=== PATIENT | male | born 1970 | race Caucasian/White ===

== ENCOUNTER 2017-04-01 12:27 | Observation (INO) | payer SELFPAY ==
[2017-04-01] MEDS ORDERED: ASPIRIN 81 MG TABLET, CHEWABLE PO ONE (12:34)
[2017-04-01 12:54] LABS: ABSOLUTE BASOPHILS # (AUTO) 0.1 10^3/uL (0.0-0.2); ABSOLUTE EOSINOPHILS # (AUTO) 0.1 10^3/uL (0.0-0.6); ABSOLUTE MONOCYTES (AUTO) 0.6 10^3/uL (0.1-1.4); ABSOLUTE NEUT (AUTO) 5.2 10^3/uL (1.7-8.2); BASOPHILS % (AUTO) 0.9 % (0-2); EOSINOPHILS % (AUTO) 0.7 % (0-6); HEMATOCRIT 42.6 % (37.9-51.0); HEMOGLOBIN 14.7 g/dL (13.5-17.0); HGB HCT DIFFERENCE 1.5; LYMPHOCYTES % (AUTO) 25.5 % (13-45); MEAN CORPUSCULAR HEMOGLOBIN 29.7 pg (27.0-33.4); MEAN CORPUSCULAR HGB CONC 34.5 g/dL (32.0-36.0); MEAN CORPUSCULAR VOLUME 86 fl (80-97); MONOCYTES % (AUTO) 7.5 % (3-13); RED BLOOD COUNT 4.96 10^6/uL (4.35-5.55); RED CELL DISTRIBUTION WIDTH 13.7 % (11.5-14.0); SEGMENTED NEUTROPHILS % (AUTO) 65.4 % (42-78)
--- NOTE | 2017-04-01 13:03 | RADIOLOGY REPORT (SQ) ---
EXAM DESCRIPTION: CHEST SINGLE VIEW COMPLETED DATE/TIME: 04/01/2017 12:52 pm REASON FOR STUDY: chest pain COMPARISON: None. EXAM PARAMETERS: NUMBER OF VIEWS: One view. TECHNIQUE: Single frontal radiographic view of the chest acquired. RADIATION DOSE: NA LIMITATIONS: None. FINDINGS: LUNGS AND PLEURA: No opacities, masses or pneumothorax. No pleural effusion. MEDIASTINUM AND HILAR STRUCTURES: No masses. Contour normal. HEART AND VASCULAR STRUCTURES: Heart normal in size. Normal vasculature. BONES: No acute findings. HARDWARE: None in the chest. OTHER: No other significant finding. IMPRESSION: NO ACUTE RADIOGRAPHIC FINDING IN THE CHEST. TECHNICAL DOCUMENTATION: JOB ID: [id number] [employer]- All Rights Reserved
[2017-04-01] MEDS ORDERED: NITROGLYCERIN 2% OINTMENT 1 GM PACKET TP ONE (13:07)
--- NOTE | 2017-04-01 13:10 | ER Document Report ---
ED General - General Chief Complaint: Chest Pain > 30 Stated Complaint: CHEST PAIN Time Seen by Provider: 04/01/17 12:31 Mode of Arrival: Ambulatory Information source: Patient Notes: 46-year-old male history of heart attack who was supposed to have a heart cath prior to moving to [place] presents with complaints of left-sided chest pain. Patient notes the sharp pain denies any fevers or chills, notes this is similar to his previous chest pain. Patient denies any fevers or chills was found in a grocery store with complaints of chest pain TRAVEL OUTSIDE OF THE [place] IN LAST 30 DAYS: No - HPI Onset: Just prior to arrival Onset/Duration: Sudden Quality of pain: Sharp Severity: Mild Pain Level: 2 Associated symptoms: Chest pain, Other Exacerbated by: Denies Relieved by: Denies Similar symptoms previously: Yes Recently seen / treated by doctor: Yes - Related Data Allergies/Adverse Reactions: No Known Allergies Allergy (Verified 04/01/17 13:31) Home Medications: Current Home Medications Lisinopril 10 mg PO DAILY 04/01/17 [History] Past Medical History - Social History Smoking Status: Current Every Day Smoker Cigarette use (# per day): Yes Chew tobacco use (# tins/day): No Smoking Education Provided: No Frequency of alcohol use: None Drug Abuse: None Family History: Reviewed & Not Pertinent Patient has suicidal ideation: No Patient has homicidal ideation: No - Past Medical History Cardiac Medical History: Reports: Hx Heart Attack, Hx Hypertension Renal/ Medical History: Denies: Hx Peritoneal Dialysis - Immunizations Hx Diphtheria, Pertussis, Tetanus Vaccination: No Review of Systems - Review of Systems Notes: REVIEW OF SYSTEMS: CONSTITUTIONAL : Denies fever, chills, or sweats. Denies recent illness. EENT: Denies eye, ear, throat, or mouth pain or symptoms. Denies nasal or sinus congestion or discharge. Denies throat, tongue, or mouth swelling or difficulty swallowing. CARDIOVASCULAR: Admits to chest pain RESPIRATORY: Denies cough, cold, or chest congestion. Denies shortness of breath, difficulty breathing, or wheezing. GASTROINTESTINAL: Denies abdominal pain or distention. Denies nausea, vomiting , or diarrhea. Denies blood in vomitus, stools, or per rectum. Denies black, tarry stools. Denies constipation. GENITOURINARY: Denies difficulty urinating, painful urination, burning, frequency, blood in urine, or discharge. MUSCULOSKELETAL: Denies back or neck pain or stiffness. Denies joint pain or swelling. SKIN: Denies rash, lesions or sores. HEMATOLOGIC : Denies easy bruising or bleeding. LYMPHATIC: Denies swollen, enlarged glands. NEUROLOGICAL: Admits to dizziness PSYCHIATRIC: Denies anxiety or stress. Denies depression, suicidal ideation, or homicidal ideation. ALL OTHER SYSTEMS REVIEWED AND NEGATIVE. Dictation was performed using [employer] voice recognition software PHYSICAL EXAMINATION: GENERAL: Well-appearing, well-nourished and in no acute distress. HEAD: Atraumatic, normocephalic. EYES: Pupils equal round and reactive to light, extraocular movements intact, sclera anicteric, conjunctiva are normal. ENT: Nares patent, oropharynx clear without exudates. Moist mucous membranes. NECK: Normal range of motion, supple without lymphadenopathy LUNGS: Breath sounds clear to auscultation bilaterally and equal. No wheezes rales or rhonchi. HEART: Regular rate and rhythm without murmurs ABDOMEN: Soft, nontender, nondistended abdomen. No guarding, no rebound. No masses appreciated. Musculoskeletal: Normal range of motion, no pitting or edema. No cyanosis. NEUROLOGICAL: Cranial nerves grossly intact. Normal speech, normal gait. Normal sensory, motor exams PSYCH: Normal mood, normal affect. SKIN: Warm, Dry, normal turgor, no rashes or lesions noted. Physical Exam - Vital signs Vitals: Temp Pulse Resp BP Pulse Ox 98.1 F 96 16 147/99 H 99 04/01/17 12:27 04/01/17 12:27 04/01/17 12:27 04/01/17 12:27 04/01/17 12:27 Course - Re-evaluation Re-evalutation: 04/01/17 13:12 Cardiac enzymes are pending overall patient looks well however has an extensive history of cardiac concerns 04/01/17 15:10 Patient notes pain relief with nitroglycerin, given history of possible cardiac concerns which is quite vague I will observe in the hospital - Vital Signs Vital signs: Temp Pulse Resp BP Pulse Ox 98.1 F 96 16 130/88 H 100 04/01/17 12:27 04/01/17 12:27 04/01/17 14:01 04/01/17 14:00 04/01/17 14:01 - Laboratory Result Diagrams: 04/01/17 12:38 04/01/17 12:38 Laboratory results interpreted by me: 04/01/17 12:38 Sodium 147.4 H Chloride 109 H - Diagnostic Test Radiology reviewed: Image reviewed, Reports reviewed - EKG Interpretation by Me EKG shows normal: Sinus rhythm, [place], Intervals, QRS Complexes Discharge - Discharge Clinical Impression: Chest pain Qualifiers: Chest pain type: unspecified Qualified Code(s): R07.9 - Chest pain, unspecified Condition: Stable Disposition: ADMITTED OBSERVATION Admitting Provider: Hospitalist Unit Admitted: Telemetry
[2017-04-01 13:14] LABS: ALANINE AMINOTRANSFERASE 34 U/L (21-72); ALKALINE PHOSPHATASE 75 U/L (38-126); ANION GAP 10 (5-19); ASPARTATE AMINO TRANSFERASE 20 U/L (17-59); BILIRUBIN,DIRECT 0.3 mg/dL (0.0-0.4); BILIRUBIN,TOTAL 0.5 mg/dL (0.2-1.3); BLOOD UREA NITROGEN 13 mg/dL (7-20); CALCIUM 9.2 mg/dL (8.4-10.2); CARBON DIOXIDE 28 mmol/L (22-30); CHLORIDE 109 mmol/L (98-107); CREATINE KINASE 103 U/L (55-170); CREATININE RESULT 0.86 mg/dL (0.52-1.25); GLUCOSE 90 mg/dL (75-110); POTASSIUM 3.6 mmol/L (3.6-5.0); SODIUM 147.4 mmol/L (137-145); TOTAL PROTEIN 6.8 g/dL (6.3-8.2)
[2017-04-01 13:26] LABS: CREATINE KINASE MB 1.56 ng/mL (<4.55)
[2017-04-01 13:27] LABS: TROPONIN I < 0.012 ng/mL
--- NOTE | 2017-04-01 14:01 | EKG REPORT ---
SEVERITY:- NORMAL ECG - SINUS RHYTHM : Confirmed by: Dixon Harvey MD 01-Apr-2017 14:00:50
--- NOTE | 2017-04-01 15:29 | RADIOLOGY REPORT (SQ) ---
EXAM DESCRIPTION: CTA CHEST COMPLETED DATE/TIME: 04/01/2017 3:01 pm REASON FOR STUDY: left sided chest pain COMPARISON: None. TECHNIQUE: CT scan of the chest performed using helical scanning technique with dynamic intravenous contrast injection. Images reviewed with lung, soft tissue and bone windows. Reconstructed coronal and sagittal MPR images reviewed. Additional 3 dimensional post-processing performed to develop Maximal Intensity Projection images ([place] P). All images stored on PACS. All CT scanners at this facility use dose modulation, iterative reconstruction, and/or weight based d osing when appropriate to reduce radiation dose to as low as reasonably achievable (ALARA). [facility]: Dose Right [facility]: CareDose [facility]: Dose Right [facility]: Teradose 4D [facility]: TravelTriangle CONTRAST TYPE AND DOSE: contrast/concentration: Isovue 370.00 mg/ml; Total Contrast Delivered: 69.0 ml; Total Saline Delivered: 110.1 ml Contrast bolus optimized for the pulmonary arteries. Not diagnostic for the aorta. RENAL FUNCTION: GFR > 60. RADIATION DOSE: Up-to-date CT equipment and radiation dose reduction techniques were employed. CTDIv ol: 14.3 - 23.2 mGy. DLP: 506 mGy-cm. . LIMITATIONS: None. FINDINGS: LUNGS AND PLEURA: No masses, infiltrates, pneumothorax. No pleural effusions, calcificati ons. AORTA AND GREAT VESSELS: No aneurysm. Contrast bolus not optimized for the aorta. HEART: No pericardial effusion. No significant coronary artery calcifications. PULMONARY ARTERIES: No emboli visualized in the main pulmonary arteries or the segmental branches. HILAR AND MEDIASTINAL STRUCTURES: No identified masses or abnormal nodes. HARDWARE: None in the chest. UPPER ABDOMEN: No significant findings. Limited exam. THYROID AND OTHER SOFT TISSUES: No masses. No adenopathy. BONES: No acute or significant finding. 3D MIPS: Confirm above findings. OTHER: No other significant finding. IMPRESSION: NORMAL CTA OF THE CHEST. NO PULMONARY EMBOLI. COMMENT: Quality ID # [id number]: Final reports with documentation of one or more dose reduction techniques (e.g., Automated exposure control, adjustment of the mA and/or kV according to patient size, use of iterative reconstruction technique) TECHNICAL DOCUMENTATION: JOB ID: [id number] [employer]- All Rights Reserved
[2017-04-01] MEDS ORDERED: INFLUENZA ADLT QUAD (36MOS+) 2017-18 VAC 0.5 ML SYR IM PRN (15:34)
[2017-04-01] MEDS ORDERED: DEXTROSE 40% GEL 15 GM TUBE PO PRN ×2 (15:44)
[2017-04-01] MEDS ORDERED: DEXTROSE 50%-WATER 25 GM/50 ML DISP.SYRIN IV PRN ×2 (15:44)
[2017-04-01] MEDS ORDERED: GLUCAGON,HUMAN RECOMB 1 MG INJ SUBCUT PRN (15:44)
[2017-04-01] MEDS ORDERED: ONDANSETRON HCL INJ/PF 4 MG/2 ML SDV IV PRN (15:44)
[2017-04-01] MEDS ORDERED: TEMAZEPAM 7.5 MG CAPSULE PO PRN (15:44)
[2017-04-01] MEDS ORDERED: HYDRALAZINE HCL INJ/PF 20 MG/1 ML SDV IV PRN (16:06)
--- NOTE | 2017-04-01 16:06 | PDOC H&P ---
History of Present Illness Admission Date/PCP: 04/01/17 14:20 None: The patient just relocated to this area from [place]. History of Present Illness: EUFEMIA GONCALVES is a 46 year old male who was brought to the emergency room via EMS after having an episode of unresponsiveness at work. His past medical history significant for reported coronary artery disease. He states that 2 years ago while living in [place] he had an MN. He was going to have a cardiac catheterization scheduled however he relocated to [place] and his physician in [place] did not feel as if this was necessary. Patient recently relocated to the [facility] and currently has been working at [employer]. He states that for several weeks he has been having issues with shortness of breath with exertion. He states that when he is exerting himself, especially at work he develops chest discomfort and shortness of breath. He states that he feels as if his heart is pounding and he sometimes becomes dizzy. He states that the chest pain is relieved with rest and eventually eases off. He sometimes becomes diaphoretic with these episodes. He does not have any nausea or vomiting with them. Today he was at work it [employer] and just was not feeling well. He states that he remembers working and developing some chest discomfort and feeling as if his heart was pounding. He then became dizzy and the next thing he knew he woke up with EMS there. He does not know whether he passed out or not. At the time of my exam the patient chest pressure has improved with nitroglycerin. He still has a little in the left anterior chest wall but overall he is feeling better. He reports a strong family history of coronary artery disease. His father of an MN at age 66. His mother of complications from heart disease and had a heart attack as well. His brother also in his early 60s of an MN. Unfortunately the patient continues to smoke. Currently about 1-1/2 packs per day Past Medical History Cardiac Medical History: Reports: Coronary Artery Disease, Myocardial Infarction , Hypertension Pulmonary Medical History: Reports: Sleep Apnea EENT Medical History: Reports: None Neurological Medical History: Reports: None Endocrine Medical History: Reports: None Renal/ Medical History: Reports: None Malignancy Medical History: Reports: None GI Medical History: Reports: None Musculoskeltal Medical History: Reports: None Skin Medical History: Reports: None Psychiatric Medical History: Reports: Attention Deficit Hyperactivity Disorder, Depression, Tobacco Dependency Traumatic Medical History: Reports: None Hematology: Reports: None Infectious Medical History: Reports: None Past Surgical History Past Surgical History: Reports: None Social History Information Source: Patient Lives with: Alone, Other - The patient is . Currently and his is living in [place]. Smoking Status: Current Every Day Smoker Cigarettes Packs Per Day: 1.5 Frequency of Alcohol Use: None Hx Recreational Drug Use: No Drugs: None Hx Prescription Drug Abuse: No - Advance Directive Resuscitation Status: Full Code Surrogate healthcare decision maker:: Christy Oh Family History Family History: CAD, Other - Father of an MN at age 66. Brother of an MN in his early 60s. Mother had an MN and of complications from heart disease. Parental Family History Reviewed: Yes Children Family History Reviewed: Yes Sibling(s) Family History Reviewed.: Yes Medication/Allergy Home Medications: Lisinopril 10 mg PO DAILY 04/01/17 Allergies/Adverse Reactions: peanut Allergy (Unknown, Verified 04/01/17 15:30) Review of Systems Constitutional: PRESENT: fatigue, weakness Eyes: ABSENT: visual disturbances Ears: ABSENT: hearing changes Nose, Mouth, and Throat: PRESENT: headache(s) - Since being given nitroglycerin. ABSENT: sore throat, vertigo Cardiovascular: PRESENT: chest pain, dyspnea on exertion, palpitations. ABSENT : edema, orthropnea Respiratory: PRESENT: dyspnea Gastrointestinal: ABSENT: abdominal pain, constipation, diarrhea, hematemesis, hematochezia, nausea, vomiting Genitourinary: ABSENT: dysuria, hematuria Musculoskeletal: ABSENT: joint swelling Integumentary: ABSENT: rash, wounds Neurological: ABSENT: abnormal gait, abnormal speech, confusion, dizziness, focal weakness, syncope Psychiatric: PRESENT: anxiety, depression, other - States that he is feeling quite anxious. He usually takes Adderall for ADHD. He has been off of it since he moved to the [place] area Endocrine: ABSENT: cold intolerance, heat intolerance, polydipsia, polyuria Hematologic/Lymphatic: ABSENT: easy bleeding, easy bruising Allergic/Immunologic: ABSENT: seasonal rhinorrhea Physical Exam Vital Signs: Temp Pulse Resp BP Pulse Ox 97.5 F 65 20 156/87 H 100 04/01/17 15:14 04/01/17 15:14 04/01/17 15:14 04/01/17 15:14 04/01/17 15:14 General appearance: PRESENT: no acute distress, well-developed, well-nourished, other - He does look as if he does not feel well Head exam: PRESENT: atraumatic, normocephalic Eye exam: PRESENT: conjunctiva pink, EOMI, PERRLA. ABSENT: scleral icterus Ear exam: PRESENT: normal external ear exam Mouth exam: PRESENT: moist, tongue midline Neck exam: ABSENT: carotid bruit, JVD, lymphadenopathy, thyromegaly Respiratory exam: PRESENT: clear to auscultation donnie. ABSENT: rales, rhonchi, wheezes Cardiovascular exam: PRESENT: RRR. ABSENT: diastolic murmur, rubs, systolic murmur Pulses: PRESENT: normal dorsalis pedis pul Vascular exam: PRESENT: normal capillary refill GI/Abdominal exam: PRESENT: normal bowel sounds, soft. ABSENT: distended, guarding, mass, organolmegaly, rebound, tenderness Rectal exam: PRESENT: deferred Extremities exam: PRESENT: full ROM. ABSENT: calf tenderness, clubbing, pedal edema Musculoskeletal exam: PRESENT: ambulatory Neurological exam: PRESENT: alert, awake, oriented to person, oriented to place , oriented to time, oriented to situation, CN II-XII grossly intact. ABSENT: motor sensory deficit Psychiatric exam: PRESENT: anxious, appropriate affect, depressed. ABSENT: agitated, homicidal ideation, suicidal ideation Skin exam: PRESENT: dry, intact, warm. ABSENT: cyanosis, rash Results Impressions: Chest X-Ray 04/01/17 12:34 IMPRESSION: NO ACUTE RADIOGRAPHIC FINDING IN THE CHEST. Chest/Abdomen CTA 04/01/17 13:10 IMPRESSION: NORMAL CTA OF THE CHEST. NO PULMONARY EMBOLI. Assessment & Plan - Diagnosis (1) Chest pain Qualifiers: Chest pain type: unspecified Qualified Code(s): R07.9 - Chest pain, unspecified Plan: The patient reportedly has had an MN 2 years ago with evidence of coronary artery disease but never had a cardiac catheterization performed. His story is concerning for a cardiac source of his chest pain. We will continue Nitropaste overnight. He has been started on a full dose aspirin for now. I will hold off on beta-tricia therapy as I am scheduling him for a Cardiolite stress test in the morning. I will obtain a 2D cardiac echo we will trend his cardiac enzymes overnight. I am going to consult Dr. Kennedy from cardiology for his recommendations. (2) Hypertension Plan: He will continue lisinopril 10 mg daily. He will have IV hydralazine available as needed for uncontrolled blood pressure. (3) Obstructive sleep apnea Plan: The patient states that he had a sleep study but never obtained a CPAP machine. He states he did have obstructive sleep apnea on his sleep study. Hopefully he can establish care with a doctor here and he can get set up with CPAP therapy. (4) Depression Plan: The patient states he used to take depression medicine but he stopped this a while back. He states that he has been quite depressed since he and his are . He is hoping that they will reconcile. He may need to be started back on some sort of depression medication and further discussions can be had. (5) ADHD Plan: The patient states that he was on Adderall in [place]. He has not had any Adderall in 3 weeks since he moved to this area. He will need to be set up with her primary care physician at the time of discharge he can continue this treatment if they feel necessary. - Time Time Spent: 50 to 70 Minutes - Inpatient Certification Medical Necessity: Other - The patient will be placed in observation in the hospital for now. We will trend his cardiac enzymes overnight and obtain cardiology evaluation. He will have stress test and echocardiogram in the morning. If all of these tests are negative he can likely be discharged tomorrow afternoon. At this point I expect his hospitalization to last for less than 2 midnights. Obviously if his stress test is positive or his cardiac enzymes are elevated he will need transfer to an outside facility for cardiac catheterization.
[2017-04-01] MEDS: ACETAMINOPHEN 325 MG TABLET PO PRN (16:34)
--- NOTE | 2017-04-01 17:29 | PDOC CONSULTATION ---
Consultation Consult Date: 04/01/17 Attending physician:: VALENTINA HOOKER Consult reason:: Chest pain and syncope History of Present Illness Admission Date/PCP: 04/01/17 15:44 Patient complains of: Chest pain and syncope History of Present Illness: EUFEMIA GONCALVES is a 46 year old male who was brought to the emergency room via EMS after having an episode of unresponsiveness at work. His past medical history significant for reported coronary artery disease. He states that 2 years ago while living in [place] he had an NM. He was going to have a cardiac catheterization scheduled however he relocated to [place] and his physician in [place] did not feel as if this was necessary. Patient recently relocated to the [facility] ER and currently has been working at [employer]. He states that for several weeks he has been having issues with shortness of breath with exertion. He states that when he is exerting himself, especially at work he develops chest discomfort and shortness of breath. He states that he feels as if his heart is pounding and he sometimes becomes dizzy. He states that the chest pain is relieved with rest and eventually eases off. He sometimes becomes diaphoretic with these episodes. He does not have any nausea or vomiting with them. Today he was at work it [employer] and just was not feeling well. He states that he remembers working and developing some chest discomfort and feeling as if his heart was pounding. He then became dizzy and the next thing he knew he woke up with EMS there. He does not know whether he passed out or not. At the time of my exam the patient chest pressure has improved with nitroglycerin. He still has a little in the left anterior chest wall but overall he is feeling better. He reports a strong family history of coronary artery disease. His father of an NM at age 66. His mother of complications from heart disease and had a heart attack as well. His brother also in his early 60s of an NM. Unfortunately the patient continues to smoke. Currently about 1-1/2 packs per day This history was reviewed and confirmed. Patient has been hospitalized it seems several times. He tells me that he was told to have some valve disease and was born with just 3 valves but this is somewhat difficult to believe. Will try to obtain those records. Patient also tells me that he just gets dizzy just before he passes out but today he was noted to be extremely diaphoretic in immediate recovery. From syncope. Patient denied any loss of bladder or bowel or any tongue bite or any active seizure disorder. Past Medical History Cardiac Medical History: Reports: Coronary Artery Disease, Myocardial Infarction , Hypertension Pulmonary Medical History: Reports: Sleep Apnea EENT Medical History: Reports: None Neurological Medical History: Reports: None Endocrine Medical History: Reports: None Renal/ Medical History: Reports: None Malignancy Medical History: Reports: None GI Medical History: Reports: None Musculoskeltal Medical History: Reports: None Skin Medical History: Reports: None Psychiatric Medical History: Reports: Attention Deficit Hyperactivity Disorder, Depression, Tobacco Dependency Traumatic Medical History: Reports: None Hematology: Reports: None Infectious Medical History: Reports: None Past Surgical History Past Surgical History: Reports: None, Other - Questionable history of heart catheterization Social History Information Source: Patient Lives with: Alone, Other - The patient is . Currently and his is living in [place]. Smoking Status: Current Every Day Smoker Cigarettes Packs Per Day: 1.5 Frequency of Alcohol Use: None Hx Recreational Drug Use: No Drugs: None Hx Prescription Drug Abuse: No - Advance Directive Resuscitation Status: Full Code Surrogate healthcare decision maker:: Patient's is the surrogate decision-maker Family History Family History: CAD, Other - Father of an NM at age 66. Brother of an NM in his early 60s. Mother had an NM and of complications from heart disease. Parental Family History Reviewed: Yes Children Family History Reviewed: Yes Sibling(s) Family History Reviewed.: Yes - Patient describes family history of CAD Medication/Allergy Home Medications: Lisinopril 10 mg PO DAILY 04/01/17 Allergies/Adverse Reactions: peanut Allergy (Unknown, Verified 04/01/17 15:30) Review of Systems Review of Systems: Please see history of present illness and past medical history as wall. Constitutional: No fever or chills reported. Head : No recent chronic headaches, recent head injury. Eyes: No recent eye pain, diplopia, redness, discharge, acute visual changes. Ears: No recent chronic ear pain, acute hearing loss, ear discharge. Oral cavity: No recent ulcerations, bleeding, oral cavity discomfort. Neck: No recent acute neck pain reported. Hematologic: No recent easy bruising or bleeding or hematologic malignancy reported. Lymphatic: No recent lymphatic malignancy, chronic lymphadenopathy reported yet Cardiovascular system review: See history of present illness. Respiratory system review: No recent chronic cough, hemoptysis, blood clots in the lungs reported. Mild Shortness of breath on exertion Gastrointestinal system review: Negative for any recent acute or chronic abdominal pain, hematemesis, melena, recent change in bowel habits. Genitourinary system review: No recent acute or chronic hematuria, flank pain, UTI etc. reported. Skin system review: Negative for any recent abnormal bruising, no rash, no pruritus reported. Neurologic: No prior history of strokes, mini strokes, seizure disorder. History of recurrent syncope Psychologic: No history of major psychosis or major depression reported. Musculoskeletal: Minor aches and pains reported. No acute joint swelling reported. Endocrine: No recent polyuria, polydipsia, recent heat or cold intolerance. Physical Exam Vital Signs: Temp Pulse Resp BP Pulse Ox 97.5 F 65 20 156/87 H 100 04/01/17 15:14 04/01/17 15:14 04/01/17 15:14 04/01/17 15:14 04/01/17 15:14 Exam: GENERAL: well-nourished and in no acute distress. Alert and oriented x3 HEAD: Atraumatic, normocephalic. EYES: Pupils equal round and reactive to light, extraocular movements intact, sclera anicteric, conjunctiva are normal. ENT: TMs normal, nares patent, oropharynx clear without exudates. Moist mucous membranes. No oral ulcerations or bleeding gums noted NECK: supple without lymphadenopathy. Trachea is central. No cervical or axillary lymphadenopathy noted. Carotids are 2+, JVD WNL LUNGS: Respiration seems nonlabored, no significant accessory muscle action noted. Breath sounds clear to auscultation bilaterally and equal noted. No wheezes rales or rhonchi noted. No significant dullness noted on percussion. CHEST: Palpation of the chest wall shows mild central chest wall tenderness. No other significant abnormalities noted. 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 ABDOMEN: Soft, no significant tenderness appreciated, normoactive bowel sounds. No guarding, no rebound. No rigidity noted . No masses appreciated. EXTREMITIES: Pedal pulses are 1-2+, no calf tenderness noted. No clubbing or cyanosis.trace to 1+ pedal edema noted NEUROLOGICAL: Focused neurological exam showed no significant neurologic deficit. Normal speech, no focal weakness appreciated. PSYCH: Normal mood, normal affect. Judgment and insight within normal limits. SKIN: No significant ecchymosis, rash, ulcerations or signs of pruritus noted. MUSCULOSKELETAL EXAM: No significant joint swelling noted. Results EKG Comments: Sinus rhythm, no acute ST-T wave changes noted. Impressions: Chest X-Ray 04/01/17 12:34 IMPRESSION: NO ACUTE RADIOGRAPHIC FINDING IN THE CHEST. Chest/Abdomen CTA 04/01/17 13:10 IMPRESSION: NORMAL CTA OF THE CHEST. NO PULMONARY EMBOLI. Assessment & Plan - Diagnosis (1) Chest pain Qualifiers: Chest pain type: unspecified Qualified Code(s): R07.9 - Chest pain, unspecified (2) Syncope Qualifiers: Syncope type: unspecified Qualified Code(s): R55 - Syncope and collapse Is this a current diagnosis for this admission?: Yes (3) Hypertension Qualifiers: Hypertension type: essential hypertension Qualified Code(s): I10 - Essential (primary) hypertension Is this a current diagnosis for this admission?: Yes (4) Obstructive sleep apnea Is this a current diagnosis for this admission?: Yes (5) Dysthymia Is this a current diagnosis for this admission?: Yes (6) Tobacco abuse Is this a current diagnosis for this admission?: Yes - Notes Notes: Chest pain: Patient has chronic chest pain. CTA is negative for pulmonary embolism. I also did not see any coronary calcification. At this point will try to obtain previous records. 2D echo ordered will be reviewed. Will go ahead and schedule patient for a nuclear stress test. Syncope: Exact etiology not clear but most likely vasovagal/neurocardiogenic but could well be cardiac dysrhythmia related since patient does describe significant problems with palpitations. Agree with cardiac monitoring. Patient may need further monitoring as an outpatient. Hypertension: Currently blood pressure under satisfactory control. Continue with current regimen. Obstructive sleep apnea: Patient describes history of loud snoring and diagnosed sleep apnea. However he is not on therapy. Patient may need to be reestablished with therapy. Dysthymia: Patient has history of ADHD and depression. Currently stable. Tobacco abuse: Patient advised to quit smoking. - Time Time Spent: 30 to 50 Minutes - CODE STATUS was discussed, patient remains full code. Surrogate decision-maker unchanged. Multiple medical problems were addressed. More than 50% of the time spent coordinating care, discussing management plans with involved caregivers. Management plans discussed with involved personnels. Medical decision making was of moderate to high complexity , patient's has multiple comorbidities. Medications reviewed and adjusted accordingly: Yes
[2017-04-01 17:30] LABS: CREATINE KINASE MB 1.33 ng/mL (<4.55); TROPONIN I < 0.012 ng/mL
[2017-04-01] MEDS: NITROGLYCERIN 2% OINTMENT 1 GM PACKET TP SCH (17:50)
[2017-04-01 18:31] LABS: CHOLESTEROL 133.94 mg/dL (0-200); Direct HDL 58 mg/dL (>40); TRIGLYCERIDES 72 mg/dL (<150)
[2017-04-01 18:42] LABS: DIRECT LDL 65 mg/dL (<100)
--- NOTE | 2017-04-01 20:20 | EKG REPORT ---
SEVERITY:- NORMAL ECG - SINUS RHYTHM : Confirmed by: Dixon Harvey MD 01-Apr-2017 20:19:25
[2017-04-01 22:41] LABS: TROPONIN I < 0.012 ng/mL
[2017-04-02] MEDS: NITROGLYCERIN 2% OINTMENT 1 GM PACKET TP SCH ×4 (00:20→17:31)
[2017-04-02 05:28] LABS: HEMATOCRIT 40.9 % (37.9-51.0); HEMOGLOBIN 13.8 g/dL (13.5-17.0); HGB HCT DIFFERENCE 0.5; MEAN CORPUSCULAR HEMOGLOBIN 29.2 pg (27.0-33.4); MEAN CORPUSCULAR HGB CONC 33.8 g/dL (32.0-36.0); MEAN CORPUSCULAR VOLUME 86 fl (80-97); RED BLOOD COUNT 4.74 10^6/uL (4.35-5.55); RED CELL DISTRIBUTION WIDTH 13.9 % (11.5-14.0); WHITE BLOOD COUNT 7.6 10^3/uL (4.0-10.5)
[2017-04-02 05:48] LABS: ANION GAP 11 (5-19); BLOOD UREA NITROGEN 17 mg/dL (7-20); CALCIUM 9.4 mg/dL (8.4-10.2); CARBON DIOXIDE 25 mmol/L (22-30); CHLORIDE 109 mmol/L (98-107); CHOLESTEROL 125.71 mg/dL (0-200); CREATINE KINASE 66 U/L (55-170); CREATININE RESULT 1.13 mg/dL (0.52-1.25); Direct HDL 56 mg/dL (>40); GLUCOSE 92 mg/dL (75-110); MAGNESIUM 1.9 mg/dL (1.6-2.3); PHOSPHORUS 4.6 mg/dL (2.5-4.5); SODIUM 144.6 mmol/L (137-145); TRIGLYCERIDES 45 mg/dL (<150)
[2017-04-02 06:00] LABS: DIRECT LDL 63 mg/dL (<100)
[2017-04-02] MEDS ORDERED: LANSOPRAZOLE 30 MG TAB.RAP.DR PO SCH (06:00)
[2017-04-02 06:02] LABS: CREATINE KINASE MB 1.03 ng/mL (<4.55)
[2017-04-02 06:07] LABS: TROPONIN I < 0.012 ng/mL
[2017-04-02 06:12] LABS: POTASSIUM 4.6 mmol/L (3.6-5.0)
--- NOTE | 2017-04-02 06:19 | EKG REPORT ---
SEVERITY:- NORMAL ECG - SINUS RHYTHM : Confirmed by: Dixon Harvey MD 02-Apr-2017 06:18:33
--- NOTE | 2017-04-02 06:22 | EKG REPORT ---
SEVERITY:- NORMAL ECG - SINUS RHYTHM : Confirmed by: Dixon Harvey MD 02-Apr-2017 06:22:07
--- NOTE | 2017-04-02 09:59 | EKG REPORT ---
SEVERITY:- NORMAL ECG - SINUS RHYTHM : Confirmed by: Ernestine Kennedy 02-Apr-2017 09:57:59
[2017-04-02] MEDS: ASPIRIN 325 MG TABLET PO SCH (12:37)
[2017-04-02] MEDS: LISINOPRIL 10 MG TABLET PO SCH (12:37)
[2017-04-02] MEDS: ENOXAPARIN SODIUM INJ 40 MG/0.4 ML DISP.SYRIN SUBCUT SCH (12:38)
[2017-04-02] MEDS ORDERED: HYDRALAZINE HCL INJ/PF 20 MG/1 ML SDV IV PRN (13:30)
[2017-04-02] MEDS ORDERED: NICOTINE 21 MG/24 HR PATCH.TD24 TD ONE (13:30)
[2017-04-02] MEDS ORDERED: ONDANSETRON HCL INJ/PF 4 MG/2 ML SDV IV PRN (13:30)
--- NOTE | 2017-04-02 13:40 | XCELERA REPORT ---
[address] [address] Transthoracic Echocardiogram Report Name: EUFEMIA GONCALVES Age: 46 yrs Gender: Male : 1970 Patient Status: Inpatient Patient Location: [address] [place], [place] [id number] Study Date: 04/02/2017 10:46 AM Height: 69 in Weight: 167 lb BSA: 1.9 m2 Procedure: A complete two-dimensional transthoracic echocardiogram was performed (2D, M-mode, spectral and color flow Doppler). The study was technically adequate with some images being suboptimal in quality. Reason For Study: chest pain Ordering Physician: VALENTINA HOOKER Performed By: Doris Fuller Interpretation Summary Left ventricular systolic function is normal. There is normal left ventricular wall thickness. Doppler measurements suggest normal left ventricular diastolic function No regional wall motion abnormalities noted. The left ventricle is grossly normal size. The left atrial size is normal. The right atrium is normal in size There is a trace amount of mitral regurgitation There is no mitral valve stenosis. There is no aortic valve stenosis No aortic regurgitation is present. There is a trace or physiologic amount of tricuspid regurgitation Tricuspid regurgitation jet envelope not well defined to measure RV systolic pressure accurately. The aortic root is not well visualized but is probably normal size. There is no pericardial effusion. MMode/2D Measurements & Calculations RVDd: 2.8 cm LVIDd: 4.7 cm FS: 27.8 % Ao root diam: 2.7 cm IVSd: 0.96 cm LVIDs: 3.4 cm EDV(Teich): 100.6 ml LVPWd: 1.0 cm ESV(Teich): 46.3 ml Ao root area: 5.6 cm2 EF(Teich): 54.0 % Doppler Measurements & Calculations MV E max red: MV dec slope: Ao V2 max: LV V1 max P.7 cm/sec 112.2 cm/sec 2.9 mmHg MV A max red: 365.9 cm/sec2 Ao max PG: LV V1 max: 70.6 cm/sec MV dec time: 5.0 mmHg 84.5 cm/sec MV E/A: 1.1 0.21 sec PA V2 max: PI end-d red: TR max red: 75.1 cm/sec 132.0 cm/sec 202.7 cm/sec PA max PG: TR max P.3 mmHg 16.4 mmHg Left Ventricle The left ventricle is grossly normal size. There is normal left ventricular wall thickness. Left ventricular systolic function is normal. Doppler measurements suggest normal left ventricular diastolic function. No regional wall motion abnormalities noted. Right Ventricle The right ventricle is grossly normal size. There is normal right ventricular wall thickness. The right ventricular systolic function is normal. Atria The right atrium is normal in size. The left atrial size is normal. Interarterial septum not well visualized and not well dopplered. Cannot comment on ASD/PFO presence. Mitral Valve The mitral valve is grossly normal. There is no mitral valve stenosis. There is a trace amount of mitral regurgitation. Aortic Valve The aortic valve is grossly normal. There is no aortic valve stenosis. No aortic regurgitation is present. Tricuspid Valve The tricuspid valve is not well visualized, but is grossly normal. There is no tricuspid stenosis. There is a trace or physiologic amount of tricuspid regurgitation. Tricuspid regurgitation jet envelope not well defined to measure RV systolic pressure accurately. Pulmonic Valve The pulmonic valve is not well visualized. Great Vessels The aortic root is not well visualized but is probably normal size. The inferior vena cava appeared normal and decreased > 50% with respiration (RAP 5-10 mmHg). Effusions There is no pericardial effusion. : VALENTINA HOOKER > Ernestine Kennedy
--- NOTE | 2017-04-02 16:29 | PDOC PROGRESS REPORT ---
Subjective Progress Note for:: 04/02/17 Subjective:: The patient is seen resting in bed comfortably. He reports continued, intermittent, chest discomfort described as heaviness with a feeling that his heart is pounding. He reports that the discomfort does occur at rest, although it is more frequent and more severe with activity. He reports occasional dizziness, shortness of breath, and diaphoresis associated with chest discomfort. He denies radiation of the pain. He expresses an interest in tobacco cessation and does ask for a nicotine patch today. Otherwise, he states he has no questions or concerns as he is waiting to have his nuclear stress test completed tomorrow once cardiology is available in house. Physical Exam Vital Signs: Temp Pulse Resp BP Pulse Ox 98.3 F 74 18 134/77 H 100 04/02/17 15:26 04/02/17 15:26 04/02/17 15:26 04/02/17 15:26 04/02/17 15:26 Intake & Output 04/01/17 04/02/17 04/03/17 06:59 06:59 06:59 Intake Total 780 Balance 780 General appearance: PRESENT: no acute distress, well-developed, well-nourished Head exam: PRESENT: atraumatic, normocephalic Eye exam: PRESENT: conjunctiva pink, EOMI, PERRLA. ABSENT: scleral icterus Ear exam: PRESENT: normal external ear exam Mouth exam: PRESENT: moist, tongue midline Neck exam: ABSENT: carotid bruit, JVD, lymphadenopathy, thyromegaly Respiratory exam: PRESENT: clear to auscultation donnie. ABSENT: rales, rhonchi, wheezes Cardiovascular exam: PRESENT: RRR. ABSENT: diastolic murmur, rubs, systolic murmur Pulses: PRESENT: normal dorsalis pedis pul Vascular exam: PRESENT: normal capillary refill GI/Abdominal exam: PRESENT: normal bowel sounds, soft. ABSENT: distended, guarding, mass, organolmegaly, rebound, tenderness Rectal exam: PRESENT: deferred Extremities exam: PRESENT: full ROM. ABSENT: calf tenderness, clubbing, pedal edema Neurological exam: PRESENT: alert, awake, oriented to person, oriented to place , oriented to time, oriented to situation, CN II-XII grossly intact. ABSENT: motor sensory deficit Psychiatric exam: PRESENT: appropriate affect, normal mood. ABSENT: homicidal ideation, suicidal ideation Skin exam: PRESENT: dry, intact, warm. ABSENT: cyanosis, rash Results Laboratory Results: 04/02/17 04:02 04/02/17 04:02 04/01/17 04/02/17 04/02/17 16:54 04:02 04:02 WBC 7.6 RBC 4.74 Hgb 13.8 Hct 40.9 MCV 86 MCH 29.2 MCHC 33.8 RDW 13.9 Plt Count 203 Sodium 144.6 Potassium 4.6 D Chloride 109 H Carbon Dioxide 25 Anion Gap 11 BUN 17 Creatinine 1.13 Est GFR ( Amer) > 60 Est GFR (Non-Af Amer) > 60 Glucose 92 Calcium 9.4 Phosphorus 4.6 H Magnesium 1.9 Triglycerides 72 45 Cholesterol 133.94 125.71 LDL Cholesterol Direct 65 63 VLDL Cholesterol 14.0 9.0 L HDL Cholesterol 58 56 TSH 04/02/17 04:02 WBC RBC Hgb Hct MCV MCH MCHC RDW Plt Count Sodium Potassium Chloride Carbon Dioxide Anion Gap BUN Creatinine Est GFR ( Amer) Est GFR (Non-Af Amer) Glucose Calcium Phosphorus Magnesium Triglycerides Cholesterol LDL Cholesterol Direct VLDL Cholesterol HDL Cholesterol TSH 0.95 04/01/17 04/01/17 04/01/17 16:54 16:54 21:45 Creatine Kinase 89 69 CK-MB (CK-2) 1.33 Troponin I < 0.012 04/01/17 04/02/17 04/02/17 21:45 04:02 04:02 Creatine Kinase 66 CK-MB (CK-2) 1.20 1.03 Troponin I < 0.012 < 0.012 Impressions: Chest X-Ray 04/01/17 12:34 IMPRESSION: NO ACUTE RADIOGRAPHIC FINDING IN THE CHEST. Chest/Abdomen CTA 04/01/17 13:10 IMPRESSION: NORMAL CTA OF THE CHEST. NO PULMONARY EMBOLI. Assessment & Plan - Diagnosis (1) Chest pain Qualifiers: Chest pain type: unspecified Qualified Code(s): R07.9 - Chest pain, unspecified Is this a current diagnosis for this admission?: Yes Plan: The patient does have a history of MT 2 years ago with multiple risk factors including continuous tobacco use, hypertension, family history. Serial troponins were negative. Lipid panel is reviewed and acceptable. He is started on aspirin. Echocardiogram completed today. Nuclear stress test planned for tomorrow. 1- Appreciate cardiology consultation and recommendations 2- Cardiolite stress test planned for the morning. 3- ASA 324 mg daily (2) Hypertension Qualifiers: Hypertension type: essential hypertension Qualified Code(s): I10 - Essential (primary) hypertension Is this a current diagnosis for this admission?: Yes Plan: Continue home medication; lisinopril 10 mg daily. IV hydralazine as needed for uncontrolled blood pressures. 1- cardiac diet (3) Tobacco abuse Is this a current diagnosis for this admission?: Yes Plan: Currently he smokes one half packs per day. Patient does express some interest in smoking cessation today. 1- Nicotine replacement therapy provided. (6) Obstructive sleep apnea Is this a current diagnosis for this admission?: Yes Plan: Patient reports that he has a diagnosis of obstructive sleep apnea but was never able to obtain his CPAP machine. He will need to establish care with a provider here to set up CPAP therapy. - Time Time Spent with patient: 25-34 minutes Smoking Cessation Education: 3 to 10 minutes Anticipated discharge: Home Within: within 24 hours - Inpatient Certification Medical Necessity: Need For Continuous Telemetry Monitoring
--- NOTE | 2017-04-02 21:50 | PDOC PROGRESS REPORT ---
Subjective Progress Note for:: 04/02/17 Subjective:: Patient seems to be doing better with gradual improvement. Patient continues to have chest pain. This is felt to be pleuritic and most likely musculoskeletal. Multiple cardiac enzymes and EKGs have been unremarkable. Today patient was supposed to undergo a stress test but did not undergo because of scheduling issues. Stress test procedure was discussed risk benefit discussed.. Patient denying any PND, orthopnea. Patient denied any sustained palpitations, dizziness, syncope, near syncope. Patient denying any fever chills. Patient denying any other significant discomfort. 2D echo results were discussed with the patient. Patient is maintaining sinus rhythm. Review of systems: Rest review of systems negative. Medications: Medications have been reviewed. Physical Exam Vital Signs: Temp Pulse Resp BP Pulse Ox 98.1 F 88 18 121/75 97 04/02/17 19:30 04/02/17 19:30 04/02/17 19:30 04/02/17 19:30 04/02/17 19:30 Intake & Output 04/01/17 04/02/17 04/03/17 06:59 06:59 06:59 Intake Total 780 485 Balance 780 485 Exam: GENERAL: well-nourished and in no acute distress. Alert and oriented x3 HEAD: Atraumatic, normocephalic. EYES: Pupils equal round and reactive to light, extraocular movements intact, sclera anicteric, conjunctiva are normal. ENT: TMs normal, nares patent, oropharynx clear without exudates. Moist mucous membranes. No oral ulcerations or bleeding gums noted NECK: supple without lymphadenopathy. Trachea is central. No cervical or axillary lymphadenopathy noted. Carotids are 2+, JVD WNL LUNGS: Respiration seems nonlabored, no significant accessory muscle action noted. Breath sounds clear to auscultation bilaterally and equal noted. No wheezes rales or rhonchi noted. No significant dullness noted on percussion. CHEST: Palpation of the chest wall shows significant significant chest wall tenderness. No other significant abnormalities noted. 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 ABDOMEN: Soft, no significant tenderness appreciated, normoactive bowel sounds. No guarding, no rebound. No rigidity noted . No masses appreciated. EXTREMITIES: Pedal pulses are 1-2+, no calf tenderness noted. No clubbing or cyanosis.trace to 1+ pedal edema noted NEUROLOGICAL: Focused neurological exam showed no significant neurologic deficit. Normal speech, no focal weakness appreciated. PSYCH: Normal mood, normal affect. Judgment and insight within normal limits. SKIN: No significant ecchymosis, rash, ulcerations or signs of pruritus noted. MUSCULOSKELETAL EXAM: No significant joint swelling noted. Results Laboratory Results: 04/02/17 04:02 04/02/17 04:02 04/02/17 04/02/17 04/02/17 04:02 04:02 04:02 WBC 7.6 RBC 4.74 Hgb 13.8 Hct 40.9 MCV 86 MCH 29.2 MCHC 33.8 RDW 13.9 Plt Count 203 Sodium 144.6 Potassium 4.6 D Chloride 109 H Carbon Dioxide 25 Anion Gap 11 BUN 17 Creatinine 1.13 Est GFR ( Amer) > 60 Est GFR (Non-Af Amer) > 60 Glucose 92 Calcium 9.4 Phosphorus 4.6 H Magnesium 1.9 Triglycerides 45 Cholesterol 125.71 LDL Cholesterol Direct 63 VLDL Cholesterol 9.0 L HDL Cholesterol 56 TSH 0.95 04/01/17 04/01/17 04/01/17 16:54 16:54 21:45 Creatine Kinase 89 69 CK-MB (CK-2) 1.33 Troponin I < 0.012 04/01/17 04/02/17 04/02/17 21:45 04:02 04:02 Creatine Kinase 66 CK-MB (CK-2) 1.20 1.03 Troponin I < 0.012 < 0.012 Impressions: Chest X-Ray 04/01/17 12:34 IMPRESSION: NO ACUTE RADIOGRAPHIC FINDING IN THE CHEST. Chest/Abdomen CTA 04/01/17 13:10 IMPRESSION: NORMAL CTA OF THE CHEST. NO PULMONARY EMBOLI. Assessment & Plan - Diagnosis (1) Chest pain Qualifiers: Chest pain type: unspecified Qualified Code(s): R07.9 - Chest pain, unspecified Is this a current diagnosis for this admission?: Yes (2) Syncope Qualifiers: Syncope type: unspecified Qualified Code(s): R55 - Syncope and collapse Is this a current diagnosis for this admission?: Yes (3) Hypertension Qualifiers: Hypertension type: essential hypertension Qualified Code(s): I10 - Essential (primary) hypertension Is this a current diagnosis for this admission?: Yes (4) Obstructive sleep apnea Is this a current diagnosis for this admission?: Yes (5) Dysthymia Is this a current diagnosis for this admission?: Yes (6) Tobacco abuse Is this a current diagnosis for this admission?: Yes - Notes Notes: ECHO WNL NST in AM Chest wall pain Vasovagal syncope Chest pain: [place] to be noncardiac. This is most likely musculoskeletal. 2D echo results were discussed. Patient was told that we could see all 4 valves on the echocardiogram. Therefore he seems to have normal valvular structure. Patient should have had a stress test today but this could not be performed. Syncope: On more detailed history, syncope seems to be vasovagal. Patient could be considered for tilt table study and a event monitor. Hypertension: Blood pressure noted to be under satisfactory control. Obstructive sleep apnea: Patient describes history of it. Discussed that this can be evaluated further as an outpatient. Dysthymia: Patient will benefit from therapy for it. Tobacco abuse: Patient advised to quit smoking. - Time Time with patient: 15-25 minutes - CODE STATUS was discussed, patient remains full code. Surrogate decision-maker unchanged. Multiple medical problems were addressed. More than 50% of the time spent coordinating care, discussing management plans with involved caregivers. Management plans discussed with involved personnels. Medical decision making was of moderate to high complexity , patient's has multiple comorbidities. Medications reviewed and adjusted accordingly: Yes
[2017-04-02] MEDS: ACETAMINOPHEN 325 MG TABLET PO PRN (21:52)
[2017-04-03] MEDS: NITROGLYCERIN 2% OINTMENT 1 GM PACKET TP SCH ×3 (00:45→11:27)
[2017-04-03 05:26] LABS: HEMATOCRIT 41.1 % (37.9-51.0); HGB HCT DIFFERENCE 0.9; MEAN CORPUSCULAR HEMOGLOBIN 29.5 pg (27.0-33.4); MEAN CORPUSCULAR HGB CONC 34.1 g/dL (32.0-36.0); MEAN CORPUSCULAR VOLUME 87 fl (80-97); RED BLOOD COUNT 4.75 10^6/uL (4.35-5.55); RED CELL DISTRIBUTION WIDTH 14.2 % (11.5-14.0); WHITE BLOOD COUNT 6.8 10^3/uL (4.0-10.5)
[2017-04-03] MEDS: LANSOPRAZOLE 30 MG TAB.RAP.DR PO SCH ×2 (05:34→05:41)
[2017-04-03 06:01] LABS: ANION GAP 11 (5-19); BLOOD UREA NITROGEN 17 mg/dL (7-20); CALCIUM 9.1 mg/dL (8.4-10.2); CARBON DIOXIDE 25 mmol/L (22-30); CHLORIDE 106 mmol/L (98-107); CREATININE RESULT 0.97 mg/dL (0.52-1.25); GLUCOSE 97 mg/dL (75-110); POTASSIUM 4.4 mmol/L (3.6-5.0); SODIUM 141.5 mmol/L (137-145)
--- NOTE | 2017-04-03 09:45 | EKG REPORT ---
SEVERITY:- NORMAL ECG - SINUS RHYTHM : Confirmed by: Ernestine Kennedy 03-Apr-2017 09:43:50
--- NOTE | 2017-04-03 09:45 | EKG REPORT ---
SEVERITY:- ABNORMAL ECG - SINUS RHYTHM ST ELEVATION SUGGESTS PERICARDITIS : Confirmed by: Ernestine Kennedy 03-Apr-2017 09:43:46
[2017-04-03] MEDS ORDERED: NICOTINE 21 MG/24 HR PATCH.TD24 TD SCH (10:00)
[2017-04-03] MEDS: ENOXAPARIN SODIUM INJ 40 MG/0.4 ML DISP.SYRIN SUBCUT SCH (10:14)
[2017-04-03] MEDS: LISINOPRIL 10 MG TABLET PO SCH (10:14)
[2017-04-03] MEDS: ASPIRIN 325 MG TABLET PO SCH (10:14)
[2017-04-03] MEDS ORDERED: REGADENOSON INJ 0.4 MG/5 ML DISP.SYRIN IV ONE (10:46)
[2017-04-03] MEDS ORDERED: AMINOPHYLLINE INJ/PF 250 MG/10 ML SDV IV ONE (10:46)
[2017-04-03 11:44] LABS: CREATINE KINASE MB 0.68 ng/mL (<4.55)
[2017-04-03 11:48] LABS: TROPONIN I < 0.012 ng/mL
--- NOTE | 2017-04-03 12:18 | DRAGON STRESS TEST REPORT ---
INTRAVENOUS LEXISCAN CARDIOLITE STRESS TEST USING SINGLE PHOTON EMMISION COMPUTERIZED TOMOGRAPHIC. DATE OF PROCEDURE: April 03, 2017 INDICATION : Chest pain CARDIAC RISK FACTORS: Diabetes, hypertension, tobacco abuse, family history of myocardial infarction RESTING EKG: Sinus rhythm without any baseline ST-T wave changes. STRESS EKG: No significant changes noted with LexiScan bolus REASON FOR TERMINATION: Protocol. PROCEDURE REPORT: Baseline heart rate 65 beats per minute with blood pressure of 121/69. Patient had no significant complaints. Heart rate at 2 minutes post bolus 92 with a blood pressure of 128/62. 3 minutes post bolus heart rate 81 with blood pressure of 122/68 No significant EKG changes were noted. Patient had no significant complaints during the procedure or postprocedure. Patient injected with Aminophyllin 75 mg at 3 minutes or later after Lexiscan bolus. CONCLUSIONS: Normal EKG and hemodynamic response to IV LexiScan. NUCLEAR DATA: At rest the patient was given 11.28 millicuries of technetium 99 sestamibi injected intravenously. As per protocol rest gated SPECT images were obtained. Subsequently the patient was given intravenous LexiScan at a dose of 0.4 mg in 5 mL intravenously, followed by flush with normal saline. Subsequently the stress dose of 33.6 millicuries of technetium 99 sestamibi was injected intravenously. As per protocol stress gated images were obtained. NUCLEAR INTERPRETATION: Both raw and processed data were used for interpretation. Visual, qualitative, computer-generated quantitative data was used. There was good myocardial uptake of technetium compound. Motion artifact and soft tissue attenuations were noted. Increased visceral uptake was noted. No definitive areas of transient perfusion defect noted. No definitive areas of fixed perfusion defect or scars noted. EKG gated imaging showed LV EF at 47 %, rest and stress gated EF similar visually. T. I D. ratio was 0.98. Lung heart ratio noted to be within normal limits 0.32. No significant extracardiac and abnormal radiotracer activities were noted. RV free wall uptake was noted to be WNL. IMPRESSION: Also refer to comments under nuclear interpretation. Also test results needs to be interpreted in the context of pretest probability. 1. There is no definitive scintigraphic evidence of LexiScan induced myocardial ischemia. 2. There is no definitive scintigraphic evidence of myocardial infarction/scar. 3. EKG gated imaging shows left ventricular ejection fraction of approximately 47 %. 4. Clinical correlation requested as occasionally single vessel disease or balanced ischemia could be missed. In approximately 10% of the cases Lexiscan may not cause adequate vasodilatory stress. RECOMMENDATIONS: Aggressive risk factor modification, medical therapy. Clinical correlation with echocardiogram derived ejection fraction. Inability to exercise by itself can lead to increased cardiovascular event risks. Consider cardiology consultation and or follow-up if clinically indicated. I AM AVAILABLE FOR CARDIOLOGY CONSULTATION AND FOLLOWUP IF REQUESTED BY PMD Ernestine Kennedy M.D., JARROD Print Support Specialist whizzer, Board certified in cardiovascular diseases, Nuclear cardiology, Echocardiography Cardiac CT and cardiac MRI Ph. [phone] [facility]
[2017-04-03 14:47] VITALS: BP 135/75
--- NOTE | 2017-04-03 17:23 | DISCHARGE SUMMARY E ---
Discharge Summary NAME: EUFEMIA GONCALVES : 1970 AGE: 46Y ADMITTED: 04/01/2017 DISCHARGED: 04/03/2017 CODE STATUS: FULL CODE. PRIMARY CARE PROVIDER: [facility] DISCHARGE DIAGNOSES INCLUDE: 1. Panic disorder. 2. Chest pain secondary to #1. 3. Hypertension. DISCHARGE MEDICATIONS INCLUDE: 1. Lisinopril 20 mg p.o. daily, 90 tablets with 0 refills. 2. Amitriptyline 25 mg p.o. q. hs, 90 tablets with 0 refill. DIET: As tolerated. ACTIVITY: As tolerated. DIAGNOSTICS: Lab values are as follows: Hematology obtained on 04/03/2017: WBC is 6.8, hemoglobin is 14.0, hematocrit is 41.4, platelet count is 192,000. Chemistry obtained on 04/03/2017: Sodium is 141, potassium 4.4, chloride is 106, carbon dioxide 25, BUN 17, creatinine is 0.97, glucose 97, A1c 5.4, calcium 9.1, phosphorus 4.6, magnesium 1.9, bilirubin 0.5, AST 28, ALT 34, alk phos 75, CK 103, CK MB 89, troponin 0.012, total protein 6.8, albumin 4.0. Triglycerides, cholesterol 133, LDL 65, VLDL 14, HDL 68. TSH is 0.95. EKG obtained on 04/01/2017 reveals sinus rhythm. EKG obtained on 04/03/2017 reveals sinus rhythm. Echocardiogram obtained on 04/02/2017 reveals a normal EF. Chest x-ray obtained on 04/01/2017 reveals no acute radiographic finding of the chest. Chest and abdominal CT obtained on 04/01/2017 reveals no acute findings. PHYSICAL EXAMINATION: GENERAL: On examination, the patient is a well-developed, well-nourished 46-year-old male who is awake, alert, and oriented to person, place, time, and situation. He is verbal, conversational, ambulatory, does not appear to be in any acute distress. VITAL SIGNS: As follows: Temperature is 97.7, pulse 68, respirations 18, blood pressure 143/86, oxygen saturation is 100% on room air. SKIN: Warm and dry. No rash, not diaphoretic. HEENT: Pupils equal, round, and reactive to light and accommodation. Conjunctivae pink. No JVP. CARDIOVASCULAR: Heart is regular. There is no murmur or rub. CHEST: Clear, symmetrical, unlabored. ABDOMEN: Soft, nontender, nondistended. BACK: No CVA tenderness or sacral edema. EXTREMITIES: No clubbing, cyanosis or pitting edema. PSYCHIATRIC: Appropriate affect. Pleasant mood. HISTORY OF PRESENT ILLNESS: The patient is a 46-year-old male with a past medical history of hypertension. The patient was brought into the emergency department via EMS after having an episode of unresponsiveness at work. The patient does have a history of significant stressors in his life. The patient stated that years ago while he was in [place], he had a similar situation and he thought he was going to have a heart catheterization however they told him that he did not need this. The patient has not had followup since that time. The patient states that in the past week his has left and he has had no sleep, but given the patient's smoking history, family history of coronary artery disease, the patient was referred to the hospital for admission and management. HOSPITAL COURSE: The patient was observed on continuous telemetry and had serial cardiac enzymes obtained, all of which were nonsuggestive. The patient had no EKG changes and no events on the athletic monitor. The patient did have a number of episodes of chest tightness and associated anxiety. There was no alleviating symptoms of these. The patient underwent Cardiolite stress test and findings were not suggestive of any reversible ischemia. The patient's lipid panel was unremarkable. The patient, once approached, completely discussed the amount of stress that he is under and the amount of anxiety he deals with on a daily basis. The patient's and he has relocated here from [place] and has minimal resources himself and feels he has no control over his life and the patient states that he has not had any sleep. I discussed options with the patient. He stated that in the past he had taken Lexapro without any benefit. The patient denies any overt depression, denies any suicidal or homicidal ideations, and has no intent to self-harm or harm others. I discuss amitriptyline with the patient. He was not familiar with the medication but is willing to give it a try. Additionally the patient's blood pressures have been running higher than normal and will increase his lisinopril dose and the patient is ready for discharge. DISCHARGE PLAN: The patient is advised to follow up with the [facility] within 1 to 2 weeks for hospital followup. Time spent on this discharge, including assessment/plan, physical examination, patient education, and specialty collaboration is 25 minutes. DICTATING PHYSICIAN: ELENITA MENDIOLA NP [id number] PHY#: [id number] ID: [id number] JOB#: [id number] ACCT: [id number] cc:Juancho MCELROY NP > MTDD
--- NOTE | 2017-04-03 20:32 | PDOC PROGRESS REPORT ---
Subjective Progress Note for:: 04/03/17 Subjective:: Patient seems to be doing better with gradual improvement. Patient continues to have chest pain. This is felt to be pleuritic and most likely musculoskeletal. Multiple cardiac enzymes and EKGs have been unremarkable. Today patient undergoing stress test. Stress test procedure was discussed risk benefit discussed.. Patient denying any PND, orthopnea. Patient denied any sustained palpitations, dizziness, syncope, near syncope. Patient denying any fever chills. Patient denying any other significant discomfort. Patient is maintaining sinus rhythm. Review of systems: Rest review of systems negative. Medications: Medications have been reviewed. Physical Exam Vital Signs: Temp Pulse Resp BP Pulse Ox 97.7 F 77 18 135/75 H 100 04/03/17 14:43 04/03/17 14:43 04/03/17 14:43 04/03/17 14:43 04/03/17 14:43 Intake & Output 04/02/17 04/03/17 04/04/17 06:59 06:59 06:59 Intake Total 780 968 Balance 780 968 Exam: GENERAL: well-nourished and in no acute distress. Alert and oriented x3 HEAD: Atraumatic, normocephalic. EYES: Pupils equal round and reactive to light, extraocular movements intact, sclera anicteric, conjunctiva are normal. ENT: TMs normal, nares patent, oropharynx clear without exudates. Moist mucous membranes. No oral ulcerations or bleeding gums noted NECK: supple without lymphadenopathy. Trachea is central. No cervical or axillary lymphadenopathy noted. Carotids are 2+, JVD WNL LUNGS: Respiration seems nonlabored, no significant accessory muscle action noted. Breath sounds clear to auscultation bilaterally and equal noted. No wheezes rales or rhonchi noted. No significant dullness noted on percussion. CHEST: Palpation of the chest wall shows positive for significant chest wall tenderness. No other significant abnormalities noted. 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 ABDOMEN: Soft, no significant tenderness appreciated, normoactive bowel sounds. No guarding, no rebound. No rigidity noted . No masses appreciated. EXTREMITIES: Pedal pulses are 1-2+, no calf tenderness noted. No clubbing or cyanosis.trace to 1+ pedal edema noted NEUROLOGICAL: Focused neurological exam showed no significant neurologic deficit. Normal speech, no focal weakness appreciated. PSYCH: Normal mood, normal affect. Judgment and insight within normal limits. SKIN: No significant ecchymosis, rash, ulcerations or signs of pruritus noted. MUSCULOSKELETAL EXAM: No significant joint swelling noted. Results Laboratory Results: 04/03/17 04:40 04/03/17 04:40 04/03/17 04/03/17 04:40 04:40 WBC 6.8 RBC 4.75 Hgb 14.0 Hct 41.1 MCV 87 MCH 29.5 MCHC 34.1 RDW 14.2 H Plt Count 192 Sodium 141.5 Potassium 4.4 Chloride 106 Carbon Dioxide 25 Anion Gap 11 BUN 17 Creatinine 0.97 Est GFR ( Amer) > 60 Est GFR (Non-Af Amer) > 60 Glucose 97 Calcium 9.1 04/01/17 04/01/17 04/01/17 16:54 16:54 21:45 Creatine Kinase 89 69 CK-MB (CK-2) 1.33 Troponin I < 0.012 NT-Pro-B Natriuret Pep 04/01/17 04/02/17 04/02/17 21:45 04:02 04:02 Creatine Kinase 66 CK-MB (CK-2) 1.20 1.03 Troponin I < 0.012 < 0.012 NT-Pro-B Natriuret Pep 04/03/17 04/03/17 10:29 10:29 Creatine Kinase 49 L CK-MB (CK-2) 0.68 Troponin I < 0.012 NT-Pro-B Natriuret Pep 46 EKG Comments: Sinus rhythm, no acute ST-T wave changes noted Impressions: Chest X-Ray 04/01/17 12:34 IMPRESSION: NO ACUTE RADIOGRAPHIC FINDING IN THE CHEST. Chest/Abdomen CTA 04/01/17 13:10 IMPRESSION: NORMAL CTA OF THE CHEST. NO PULMONARY EMBOLI. Assessment & Plan - Diagnosis (1) Chest pain Qualifiers: Chest pain type: unspecified Qualified Code(s): R07.9 - Chest pain, unspecified Is this a current diagnosis for this admission?: Yes (2) Syncope Qualifiers: Syncope type: unspecified Qualified Code(s): R55 - Syncope and collapse Is this a current diagnosis for this admission?: Yes (3) Hypertension Qualifiers: Hypertension type: essential hypertension Qualified Code(s): I10 - Essential (primary) hypertension Is this a current diagnosis for this admission?: Yes (4) Obstructive sleep apnea Is this a current diagnosis for this admission?: Yes (5) Dysthymia Is this a current diagnosis for this admission?: Yes (6) Tobacco abuse Is this a current diagnosis for this admission?: Yes - Notes Notes: Chest pain: This is felt to be pleuritic and most likely musculoskeletal. Patient had nuclear stress test which was negative for pharmacologic stress- induced ischemia. Syncope: On more detailed history, syncope seems to be vasovagal. Patient could be considered for tilt table study and a event monitor. Hypertension: Blood pressure noted to be under satisfactory control. Obstructive sleep apnea: Patient describes history of it. Discussed that this can be evaluated further as an outpatient. Dysthymia: Patient will benefit from therapy for it. Tobacco abuse: Patient advised to quit smoking. - Time Time with patient: Greater than 35 minutes - Patient was seen multiple times. Total time exceeds 40 minutes. In the morning nuclear stress test procedure, risks benefits, alternatives were discussed. Patient seen during the stress test. Patient also seen after stress test when results were discussed with the patient in detail. Patient's questions were answered. Nuclear stress test results were discussed with the patient. Patient was informed that no definitive evidence of pharmacologic stress-induced ischemia noted. No definite fixed defects were noted. Patient informed that occasionally significant single vessel disease or balanced ischemia could be missed. However based on the current study results, would recommend aggressive risk factor modification and medical therapy. It may also be worthwhile to consider evaluation or empiric management of other causes of chest pain. Should no other cause be found and if persistent in having chest pain, then cardiac catheterization should be considered. Right now, recommendations are for aggressive risk factor modification and medical management. CODE STATUS was discussed, patient remains full code. Surrogate decision-maker unchanged. Multiple medical problems were addressed. More than 50% of the time spent coordinating care, discussing management plans with involved caregivers. Management plans discussed with involved personnels. Medical decision making was of moderate to high complexity, patient's has multiple comorbidities. Hospitalist was informed also about the test results. Medications reviewed and adjusted accordingly: Yes
== END 2017-04-03 15:15 | disposition home or self-care (01) ==
LOC: ER 12:27 → UNDOADMOB 14:20 → EH 14:20 → 4N 15:10 → EH 15:10 → 4N 15:44
PROVIDERS: ADMIT Internal Medicine; ATTEND Internal Medicine
PROC: HZ31ZZZ Individual Counseling for Substance Abuse Treatment, Behavioral (ICD-10-PCS; principal; 2017-04-02)
PROC: 3E0234Z Introduction of Serum, Toxoid and Vaccine into Muscle, Percutaneous Approach (ICD-10-PCS; 2017-04-03)
DX: F41.0 Panic disorder [episodic paroxysmal anxiety] (principal); R07.89 Other chest pain; I10 Essential (primary) hypertension; R55 Syncope and collapse; Z63.5 Disruption of family by separation and divorce; I25.2 Old myocardial infarction; F17.210 Nicotine dependence, cigarettes, uncomplicated; R01.1 Cardiac murmur, unspecified; Z72.820 Sleep deprivation; G47.33 Obstructive sleep apnea (adult) (pediatric); G44.40 Drug-induced headache, not elsewhere classified, not intractable; T46.3X5A Adverse effect of coronary vasodilators, initial encounter; I25.10 Atherosclerotic heart disease of native coronary artery without angina pectoris; F90.9 Attention-deficit hyperactivity disorder, unspecified type; F34.1 Dysthymic disorder; R42 Dizziness and giddiness; R61 Generalized hyperhidrosis; Z82.49 Family history of ischemic heart disease and other diseases of the circulatory system; Z79.899 Other long term (current) drug therapy; Z23 Encounter for immunization
CPT/HCPCS: 93005 ×4; 99285; 36415 ×3; 82553 ×3; 82550 ×3; 83735; 84100; 84443; 85025; 85027 ×2; 80048 ×2; 80053; 84484 ×3; 83036; 80061 ×2; 83880; 93306; 93017; 71010; 78452; 71275; 90686; 93010 ×3; 99406; A9500; J2785; J1650 ×2; J3490 ×3; J0280; Q9969; 90471; G0008; G0378

== ENCOUNTER 2017-04-07 00:19 | Emergency (ER) | payer SELFPAY ==
--- NOTE | 2017-04-07 00:50 | ER Document Report ---
ED General - General Stated Complaint: POSSIBLE OVERDOSE Time Seen by Provider: 04/07/17 00:23 Notes: Patient is a 46-year-old male who presents with complaint of overdose on amitriptyline and BuSpar. According to the continuous dryout operator helper report he took 10-11 amitriptyline 6-10 BuSpar. Patient tells me he took 5 of each medications. I asked him if he did this because he wanted to hurt himself and the patient's response was "yes, kind of". Not tell me why he wants to himself. He also complains of restless leg syndrome. He denies any fevers or infections. He has a little bit of nausea. No vomiting. He has no other complaints at this time. TRAVEL OUTSIDE OF THE [place] IN LAST 30 DAYS: No - Related Data Allergies/Adverse Reactions: peanut Allergy (Unknown, Verified 04/01/17 15:30) Past Medical History - Social History Smoking Status: Current Every Day Smoker Frequency of alcohol use: None Drug Abuse: None Family History: CAD, Other - Father of an OK at age 66. Brother of an OK in his early 60s. Mother had an OK and of complications from heart disease. - Past Medical History Cardiac Medical History: Reports: Hx Coronary Artery Disease, Hx Heart Attack, Hx Hypertension Pulmonary Medical History: Reports: Hx Sleep Apnea Renal/ Medical History: Denies: Hx Peritoneal Dialysis Psychiatric Medical History: Reports: Hx Attention Deficit Hyperactivity Disorder, Hx Depression Past Surgical History: Reports: Other - Questionable history of heart catheterization - Immunizations Hx Diphtheria, Pertussis, Tetanus Vaccination: No Review of Systems - Review of Systems Notes: My Normal Review Basic REVIEW OF SYSTEMS: CONSTITUTIONAL : Denies fever, chills, or sweats. Denies recent illness. EENT: Denies eye, ear, throat, or mouth pain or symptoms. Denies nasal or sinus congestion. RESPIRATORY: Denies cough, cold, or chest congestion. Denies shortness of breath, difficulty breathing, or wheezing. GASTROINTESTINAL: Denies abdominal pain. Denies nausea, vomiting, or diarrhea. Denies constipation. Last BM: MUSCULOSKELETAL: Denies neck or back pain or joint pain or swelling. SKIN: Denies rash or skin lesions. NEUROLOGICAL: Denies altered mental status or loss of consciousness. Denies headache. Denies weakness or paralysis or loss of use of either side. Denies problems with gait or speech. Denies sensory or motor loss. PSYCHIATRIC: Suicide attempt ALL OTHER SYSTEMS REVIEWED AND NEGATIVE. Physical Exam - Vital signs Vitals: Resp Pulse Ox 15 99 04/07/17 01:21 04/07/17 01:21 - Notes Notes: General Appearance: Well nourished, alert, cooperative, no acute distress, no obvious discomfort. Patient is restless. Vitals: reviewed, See vital signs table. Head: no swelling or tenderness to the head Eyes: PERRL, EOMI, Conjuctiva clear Mouth: No decreasd moisture Lungs: No wheezing, No rales, No rhonci, No accessory muscle use, good air exchange bilaterally. Heart: Tachycardiac rate, Regular rythm, No murmur, no rub Abdomen: Normal BS, soft, No rigidity, No abdominal tenderness, No guarding, no rebound, no abdominal masses, no organomegaly Extremities: strength 5/5 in all extremities, good pulses in all extremities, no swelling or tenderness in the extremities, no edema. Skin: warm, dry, appropriate color, no rash Neuro: speech clear, oriented x 3, normal affect, responds appropriately to questions. Patient moves all extremities on his own. Cranial nerves II through XII are intact. Patient is restless and constantly moving his legs. 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 I will give him a dose of Ativan hopefully this will help calm down his anxiety and allow us to continue to monitor him appropriately. 04/07/17 05:16 Patient continues to be agitated and trying to get out of bed and pulling himself off the monitor. Will place him in soft restraints. 04/07/17 06:26 Patient is still a bit agitated but is improving significantly as compared just a few hours ago. Heart rate is now down to 104. QRS interval still within normal range. Suspect patient should be able to be medically cleared in the next several hours. We will continue to monitor the patient until he is back to his baseline. - Vital Signs Vital signs: Temp Pulse Resp BP Pulse Ox 20 91/53 L 97 04/07/17 06:14 04/07/17 02:00 04/07/17 06:14 - Laboratory Result Diagrams: 04/07/17 01:10 04/07/17 01:10 Laboratory results interpreted by me: 04/07/17 04/07/17 04/07/17 01:10 01:10 04:15 WBC 11.4 H Seg Neutrophils % 79.8 H Lymphocytes % 12.8 L Absolute Neutrophils 9.1 H Glucose 121 H AST 15 L Salicylates < 1.0 L Acetaminophen < 10 L < 10 L - EKG Interpretation by Me Additional EKG results interpreted by me: 04/07/17 06:24 KG #1 is reviewed and interpreted by me. EKG shows sinus tachycardia with rate of [address] segment elevation or depression. Irritable, QRS duration, QTc intervals are within normal range. Old EKG for comparison is from April 03, 2017. EKG#2 is reviewed and interpreted by me. EKG shows sinus tachycardia with rate of [address] segment elevation or depression. No ischemic T-wave inversions. [place] interval, QRS duration, QTc intervals are within normal range. 04/07/17 06:28 Discharge - Discharge Clinical Impression: Suicide attempt Overdose Qualifiers: Encounter type: initial encounter Injury intent: intentional self-harm Qualified Code(s): T50.902A - Poisoning by unspecified drugs, medicaments and biological substances, intentional self-harm, initial encounter Condition: Stable
[2017-04-07 01:20] LABS: ABSOLUTE BASOPHILS # (AUTO) 0.1 10^3/uL (0.0-0.2); ABSOLUTE EOSINOPHILS # (AUTO) 0.1 10^3/uL (0.0-0.6); ABSOLUTE LYMPHOCYTES (AUTO) 1.5 10^3/uL (0.5-4.7); ABSOLUTE MONOCYTES (AUTO) 0.7 10^3/uL (0.1-1.4); ABSOLUTE NEUT (AUTO) 9.1 10^3/uL (1.7-8.2); BASOPHILS % (AUTO) 0.7 % (0-2); EOSINOPHILS % (AUTO) 0.5 % (0-6); HEMATOCRIT 43.9 % (37.9-51.0); HGB HCT DIFFERENCE 1.1; LYMPHOCYTES % (AUTO) 12.8 % (13-45); MEAN CORPUSCULAR HEMOGLOBIN 29.2 pg (27.0-33.4); MEAN CORPUSCULAR HGB CONC 34.1 g/dL (32.0-36.0); MEAN CORPUSCULAR VOLUME 86 fl (80-97); MONOCYTES % (AUTO) 6.2 % (3-13); RED BLOOD COUNT 5.14 10^6/uL (4.35-5.55); RED CELL DISTRIBUTION WIDTH 13.6 % (11.5-14.0); SEGMENTED NEUTROPHILS % (AUTO) 79.8 % (42-78); WHITE BLOOD COUNT 11.4 10^3/uL (4.0-10.5)
[2017-04-07 01:53] LABS: ALANINE AMINOTRANSFERASE 41 U/L (21-72); ALBUMIN 4.1 g/dL (3.5-5.0); ALKALINE PHOSPHATASE 76 U/L (38-126); ANION GAP 13 (5-19); ASPARTATE AMINO TRANSFERASE 15 U/L (17-59); BILIRUBIN,DIRECT 0.4 mg/dL (0.0-0.4); BILIRUBIN,TOTAL 0.5 mg/dL (0.2-1.3); BLOOD UREA NITROGEN 18 mg/dL (7-20); CALCIUM 9.6 mg/dL (8.4-10.2); CARBON DIOXIDE 28 mmol/L (22-30); CHLORIDE 102 mmol/L (98-107); CREATININE RESULT 1.01 mg/dL (0.52-1.25); GLUCOSE 121 mg/dL (75-110); POTASSIUM 3.9 mmol/L (3.6-5.0); SODIUM 142.9 mmol/L (137-145); TOTAL PROTEIN 6.7 g/dL (6.3-8.2)
[2017-04-07 01:56] LABS: ALCOHOL < 10 mg/dL (NONE DETECTED)
[2017-04-07 02:58] LABS: APPEARANCE,URINE CLEAR; BILIRUBIN,URINE NEGATIVE (NEGATIVE); GLUCOSE, URINE NEGATIVE (NEGATIVE); KETONES,URINE NEGATIVE (NEGATIVE); LEUKOCYTE ESTERASE,URINE NEGATIVE (NEGATIVE); NITRITE,URINE NEGATIVE (NEGATIVE); PROTEIN,URINE NEGATIVE (NEGATIVE); URINE SPECIFIC GRAVITY 1.025; UROBILINOGEN,URINE NEGATIVE mg/dL (<2.0)
[2017-04-07 03:29] LABS: URINE BARBITURATES SCREEN NEGATIVE; URINE METHADONE SCREEN NEGATIVE; URINE OPIATES LOW NEGATIVE; URINE PHENCYCLIDINE SCREEN NEGATIVE
[2017-04-07] MEDS ORDERED: LORAZEPAM INJ 2 MG/1 ML VIAL IV ONE (04:33)
--- NOTE | 2017-04-07 09:59 | ER Document Report ---
Doctor's Note Notes: 04/07/17 09:56 Rounds: Chart reviewed and patient interviewed. Patient sounds very groggy and sleepy and hard to understand what he saying because his speech seems slurred. He is moving all 4 extremities. Does answer questions appropriately, although he thought he was in [facility] and not here in [place]. Patient says he did take an overdose of between 6 and 12 amitriptyline's. Not sure if he still feel suicidal this morning. Vital signs are all normal. Labs are essentially normal, with a white count of 11,400 as the only lab result of note. Patient is not currently on any medications. At this time, I do not think the patient is completely clear for transfer or discharge, but I think during the day he should awaken more and be able to be discharged or transferred later this afternoon. Isa Htafield MD 04/07/17 14:37 Patient seems to be more easily arousable. He is able to stand up and walk around in his room and in the hallway. Patient was transferred to room . He appears to be medically stable for transfer or discharge at this time. Isa aHtfield MD
--- NOTE | 2017-04-07 10:21 | PSYCHOLOGICAL NOTE ---
Psych Note - Psych Note Psych Note: Patient is a 46-year-old male who presents with complaint of overdose on amitriptyline and BuSpar. According to the supervisor asbestos removal report he took 10-11 amitriptyline 6-10 BuSpar. Patient tells me he took 5 of each medications. I asked him if he did this because he wanted to hurt himself and the patient's response was "yes, kind of". Not tell me why he wants to himself. Patient attempted evaluation with patient. Unable to arouse. Patient is currently soft restraints. Second attempt to evaluate was unsuccessful; unable to arouse patient. Attending nurse disclosed the patient was able to be awoken briefly to walk to his new room but has been passed out since then. Patient no longer in soft restraints. Re-evaluation will occur.
--- NOTE | 2017-04-07 15:46 | EKG REPORT ---
SEVERITY:- ABNORMAL ECG - SINUS TACHYCARDIA TURNER, CONSIDER BIATRIAL ABNORMALITIES : Confirmed by: Ernestine Kennedy 07-Apr-2017 15:46:24
--- NOTE | 2017-04-07 15:46 | EKG REPORT ---
SEVERITY:- OTHERWISE NORMAL ECG - SINUS TACHYCARDIA : Confirmed by: Ernestine Kennedy 07-Apr-2017 15:46:19
[2017-04-08] MEDS ORDERED: BUSPIRONE HCL 10 MG TABLET PO ONE (10:30)
[2017-04-08] MEDS ORDERED: CITALOPRAM HYDROBROMIDE 20 MG TABLET PO ONE (10:30)
--- NOTE | 2017-04-08 10:34 | ER Document Report ---
Doctor's Note Notes: 04/08/17 10:32 Sleeping when I enter the room, awakens easily, no distress, no complaints. Admits to suicide attempt, also admits to immediate regret and fear of dying, states he called the ambulance, but then states called. Agrees that he needs to have treatment, agrees to try new medications that have been ordered, bina and buskatie. Will reassess and attempt to place vs discharge tomorrow.
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
[2017-04-08] MEDS: LISINOPRIL 10 MG TABLET PO SCH (20:35)
[2017-04-08] MEDS: BUSPIRONE HCL 10 MG TABLET PO SCH (21:59)
[2017-04-08] MEDS: CITALOPRAM HYDROBROMIDE 20 MG TABLET PO SCH (21:59)
[2017-04-08] MEDS ORDERED: BUSPIRONE HCL 10 MG TABLET PO SCH (22:00)
[2017-04-09] MEDS: CITALOPRAM HYDROBROMIDE 20 MG TABLET PO SCH (08:13)
[2017-04-09] MEDS: BUSPIRONE HCL 10 MG TABLET PO SCH (08:14)
--- NOTE | 2017-04-09 09:19 | ER Document Report ---
Doctor's Note Notes: 04/09/17 09:19 I have evaluated this patient this am and has no c/o at this time. Feels all of their needs are being met and physical exam is normal. Awaiting dispositon per mental health. 04/09/17 14:36 Pt was accepted to [place] under the care of Dr. Bates for Inpatient psychiatric treatment due to suicide attempt by overdose. EMTALA filled out.
[2017-04-09] MEDS: LISINOPRIL 10 MG TABLET PO SCH (10:08)
--- NOTE | 2017-04-09 12:01 | PSYCHOLOGICAL NOTE ---
Psych Note - Psych Note Psych Note: Conducted check in with patient who is a 46-year-old male under involuntary commitment due to intentional polypharmacy overdose. Patient today states he wants to go home. Discussed with patient that collateral information gathered yesterday was concerning in regards to his safety. Specifically, that patient emailed friends and family goodbye and that he was committing suicide. Discussed with patient the need to remain under involuntary commitment for his safety. Additionally discussed that he was being referred to inpatient psychiatric care for further treatment and has been accepted to [facility]. Advised patient that he will be updated as soon as possible in regards to time of transfer. Patient reports she is concerned he will lose his job. Discussed with patient that he will be provided a letter from the psychiatric facility stating he was hospitalized. Also encouraged patient to utilize his time to call his work as well as his . Patient is alert and oriented. Mood is euthymic with normal affect. Patient endorses suicide intent behind his overdose. Patient denies homicidal ideations , intent, plan, means. Patient denies A/VH; delusions not noted. Thought processes were organized. Conversational speech was fast for prosody. Intellectual abilities were estimated within lower average range. Attention and focus were poor. Insight, judgment, impulse control are poor. 311 (F 32.9) unspecified depressive disorder Patient's presenting symptoms are similar to that of a depressive disorder and are causing clinically significant distress in all domains of his life At this time in within this setting there is not enough information to make a more specific diagnosis (e.g. major depressive disorder) Patient is recommended to continue under involuntary commitment. Patient has been accepted to [facility] by Dr. pires for inpatient psychiatric care. Patient will transfer later this afternoon [facility] department. Patient is recommended to continue under involuntary commitment and follow through with placement. I consulted with Dr. Olguin in regards to the care and management of this patient. EDHI states he is in agreement with disposition and recommendations.
[2017-04-09 14:57] VITALS: BP 132/86
== END 2017-04-09 15:00 ==
LOC: ER 00:19
DX: T43.012A Poisoning by tricyclic antidepressants, intentional self-harm, initial encounter (principal); T43.592A Poisoning by other antipsychotics and neuroleptics, intentional self-harm, initial encounter; F32.9 Major depressive disorder, single episode, unspecified; F17.200 Nicotine dependence, unspecified, uncomplicated; I25.10 Atherosclerotic heart disease of native coronary artery without angina pectoris; I25.2 Old myocardial infarction; I10 Essential (primary) hypertension
CPT/HCPCS: 93005; 99285; 96374; 36415; 80307 ×4; 85025; 80053; 81001; 93010; J2060

== ENCOUNTER 2017-05-22 14:42 | Emergency (ER) | payer BC ==
--- NOTE | 2017-05-22 15:46 | ER Document Report ---
ED Medical Screen (RME) - General Chief Complaint: Flank Pain Stated Complaint: LEFT SIDE FLANK PAIN/BACK PAIN Time Seen by Provider: 05/22/17 15:41 Mode of Arrival: Ambulatory Information source: Patient Notes: Patient is 46 year old female complaining of low back pain, left flank pain that started 9 months ago, that worsened over the past 2-3 days. He was seeing urologist in [place] but he has not established care. Endorses difficulty with initiating stream, dysuria, urinary incontinence, hematuria (just a few days ago). He has tried cialis previously but has been out. He has appointment with urologist on . he has tried tylenol and ibuprofen with no improvement. Denies any fever, chills, n/v/d, bowel incontinence, saddle paresthesias, penile discharge, testicular swelling/pain. TRAVEL OUTSIDE OF THE [place]. IN LAST 30 DAYS: No - Related Data Allergies/Adverse Reactions: peanut Allergy (Unknown, Verified 05/22/17 14:44) Past Medical History - Past Medical History Cardiac Medical History: Reports: Hx Coronary Artery Disease, Hx Heart Attack, Hx Hypertension Pulmonary Medical History: Reports: Hx Sleep Apnea Renal/ Medical History: Denies: Hx Peritoneal Dialysis Psychiatric Medical History: Reports: Hx Attention Deficit Hyperactivity Disorder, Hx Depression Past Surgical History: Reports: Other - Questionable history of heart catheterization - Immunizations Hx Diphtheria, Pertussis, Tetanus Vaccination: No History of Influenza Vaccine for 02/2017 - 07/2017 Season: No Review of Systems - Review of Systems Constitutional: See HPI EENT: No symptoms reported Cardiovascular: No symptoms reported Respiratory: No symptoms reported Gastrointestinal: See HPI Genitourinary: See HPI Male Genitourinary: No symptoms reported Musculoskeletal: No symptoms reported Skin: No symptoms reported Hematologic/Lymphatic: No symptoms reported Neurological/Psychological: No symptoms reported Physical Exam - Vital signs Vitals: Temp Pulse Resp BP Pulse Ox 98.2 F 68 18 159/97 H 99 05/22/17 15:32 05/22/17 15:32 05/22/17 15:32 05/22/17 15:32 05/22/17 15:32 - Notes Notes: PHYSICAL EXAM: General: alert and oriented, well-appearing, non-toxic in appearance GI: nontender, nondistended. +L CVAT Course - Re-evaluation Re-evalutation: 05/22/17 15:46 I have greeted and performed a rapid initial assessment of this patient. A comprehensive ED assessment and evaluation of the patient, analysis of test results and completion of the medical decision making process will be conducted by additional ED providers. - Vital Signs Vital signs: Temp Pulse Resp BP Pulse Ox 98.2 F 68 18 159/97 H 99 05/22/17 15:32 05/22/17 15:32 05/22/17 15:32 05/22/17 15:32 05/22/17 15:32
[2017-05-22 16:10] LABS: APPEARANCE,URINE CLEAR; BILIRUBIN,URINE NEGATIVE (NEGATIVE); COLOR,URINE COLORLESS; GLUCOSE, URINE NEGATIVE (NEGATIVE); KETONES,URINE NEGATIVE (NEGATIVE); LEUKOCYTE ESTERASE,URINE NEGATIVE (NEGATIVE); NITRITE,URINE NEGATIVE (NEGATIVE); PROTEIN,URINE NEGATIVE (NEGATIVE); URINE SPECIFIC GRAVITY 1.002; UROBILINOGEN,URINE NEGATIVE mg/dL (<2.0)
--- NOTE | 2017-05-22 16:23 | RADIOLOGY REPORT (SQ) ---
EXAM DESCRIPTION: CT ABD/PELVIS NO ORAL OR IV COMPLETED DATE/TIME: 05/22/2017 4:11 pm REASON FOR STUDY: r/o nephrolithiasis COMPARISON: None. TECHNIQUE: CT scan of the abdomen and pelvis performed without intravenous or oral contrast. Images reviewed with lung, soft tissue, and bone windows. Reconstructed coronal and sagittal MPR images revi ewed. All images stored on PACS. All CT scanners at this facility use dose modulation, iterative reconstruction, and/or weight based d osing when appropriate to reduce radiation dose to as low as reasonably achievable (ALARA). [facility]: Dose Right [facility]: CareDose [facility]: Dose Right [facility]: Teradose 4D [facility]: Smart [employer] ([place]) RADIATION DOSE: CT Rad equipment meets quality standard of care and radiation dose reduction techniq ues were employed. CTDIvol: 6.2 mGy. DLP: 318 mGy-cm.mGy. LIMITATIONS: None. FINDINGS: LOWER CHEST: No significant findings. No nodules or infiltrates. NON-CONTRASTED LIVER, SPLEEN, ADRENALS: Evaluation limited by lack of IV contrast. No identified sign ificant masses. PANCREAS: No masses. No peripancreatic inflammatory changes. GALLBLADDER: No identified stones by CT criteria. No inflammatory changes to suggest cholecystitis. RIGHT KIDNEY AND URETER: No suspicious masses. Assessment limited by lack of IV contrast. No signif icant calcifications. No hydronephrosis or hydroureter. LEFT KIDNEY AND URETER: No suspicious masses. Assessment limited by lack of IV contrast. No signifi cant calcifications. No hydronephrosis or hydroureter. AORTA AND RETROPERITONEUM: No aneurysm. No retroperitoneal masses or adenopathy. BOWEL AND PERITONEAL CAVITY: No obvious masses or inflammatory changes. No free fluid. APPENDIX: Normal. PELVIS, BLADDER, AND ABDOMINAL WALL:No abnormal masses. No free fluid. Bladder normal. BONES: No significant findings. OTHER: No other significant finding. IMPRESSION: NO SIGNIFICANT OR ACUTE PROCESS IN THE ABDOMEN OR PELVIS. COMMENT: Quality ID # [id number]: Final reports with documentation of one or more dose reduction techniques (e.g., Automated exposure control, adjustment of the mA and/or kV according to patient size, use of iterative reconstruction technique) TECHNICAL DOCUMENTATION: JOB ID: [id number]- All Rights Reserved
--- NOTE | 2017-05-22 17:35 | ER Document Report ---
ED General - General Chief Complaint: Flank Pain Stated Complaint: LEFT SIDE FLANK PAIN/BACK PAIN Time Seen by Provider: 05/22/17 15:41 Mode of Arrival: Ambulatory TRAVEL OUTSIDE OF THE [place] IN LAST 30 DAYS: No - HPI Notes: 46-year-old male presents today with complaints of left sided flank pain that has been occurring for the last year. Patient is from [place], lost his insurance when he came down here for his job. Patient states he has always had issues with voiding, and is able to completely void, but since he has not been taking his Flomax he has noticed that he has to "push". Denies any fevers or chills. Denies any chest pain, shortness of breath, nausea, vomiting, blurred vision, double vision, loss of vision. Eating drinking without issues. Pain is 4-10, throbbing. Patient is seeing urology on June 08, [facility]. Patient does not have a PCP at this time. States he typically takes lisinopril 20 mg daily. - Related Data Allergies/Adverse Reactions: peanut Allergy (Unknown, Verified 05/22/17 14:44) Past Medical History - Social History Smoking Status: Current Every Day Smoker Chew tobacco use (# tins/day): No Frequency of alcohol use: None Drug Abuse: Marijuana Family History: CAD, Other - Father of an MO at age 66. Brother of an MO in his early 60s. Mother had an MO and of complications from heart disease. Patient has suicidal ideation: No Patient has homicidal ideation: No - Past Medical History Cardiac Medical History: Reports: Hx Coronary Artery Disease, Hx Heart Attack, Hx Hypertension Pulmonary Medical History: Reports: Hx Sleep Apnea Renal/ Medical History: Denies: Hx Peritoneal Dialysis Psychiatric Medical History: Reports: Hx Attention Deficit Hyperactivity Disorder, Hx Depression Past Surgical History: Reports: Other - Questionable history of heart catheterization - Immunizations Hx Diphtheria, Pertussis, Tetanus Vaccination: No Review of Systems - Review of Systems Constitutional: See HPI Cardiovascular: No symptoms reported Respiratory: No symptoms reported Gastrointestinal: No symptoms reported Genitourinary: See HPI, Flank pain, Urgency Male Genitourinary: Erectile dysfunction Musculoskeletal: No symptoms reported Skin: No symptoms reported Hematologic/Lymphatic: No symptoms reported Neurological/Psychological: No symptoms reported Physical Exam - Vital signs Vitals: Temp Pulse Resp BP Pulse Ox 98.2 F 68 18 159/97 H 99 05/22/17 15:32 05/22/17 15:32 05/22/17 15:32 05/22/17 15:32 05/22/17 15:32 Interpretation: Normal - General General appearance: Appears well - Respiratory Respiratory status: No respiratory distress Chest status: Nontender Breath sounds: Normal Chest palpation: Normal - Cardiovascular Rhythm: Regular Heart sounds: Normal auscultation Pulses: Normal: Radial Normal capillary refill: Yes - Abdominal Inspection: Normal Distension: No distension Bowel sounds: Normal Tenderness: Tender - scant tenderness to left flank area Organomegaly: No organomegaly - Back Back: Normal, Tender - paraspinal tenderness on palpation near L1-L2 bilaterally. raight leg test negative. no pain with flexion or extension. normal hip rotation. DTR +2 in BLE equally. Normal motor and sensory function. Distal pulses + 2 BLE equally. Noted paraspinal tenderness near L2 and L3. No spinal tenderness . - Extremities General upper extremity: Normal inspection General lower extremity: Normal inspection - Neurological Neuro grossly intact: Yes Cognition: Normal Orientation: AAOx4 Additional motor exam normals: Equal assembler clip on sunglasses, Dorsiflexion, Plantar flexion, Pronator drift Notes: Normal sensory motor function in bilateral lower extremities equally. - Skin Skin Temperature: Warm Skin Moisture: Dry Skin Color: Normal Course - Re-evaluation Re-evalutation: Rchecked the patient who is resting comfortably. On re-exam, patient is symptomatically improved. Discussed the results of the labs/radiology as well as the diagnosis at great length. Discussed the need to return to the ER for any new or worsening sx. Patient understands to take the Rx as directed. All questions answered. Patient comfortable with the decision to go home. 05/22/17 17:37 - Vital Signs Vital signs: Temp Pulse Resp BP Pulse Ox 98.2 F 68 18 159/97 H 99 05/22/17 15:32 05/22/17 15:32 05/22/17 15:32 05/22/17 15:32 05/22/17 15:32 - Diagnostic Test Radiology results interpreted by me: 05/22/17 17:38 ct abdomen and pelvis negative for any acute findings. - Diagnostic Exam Abdominal/Pelvis Type of test: CT scan without contrast - Negative for any acute findings Findings: Nml/NAD Discharge - Discharge Clinical Impression: Chronic flank pain Hypertension Qualifiers: Hypertension type: essential hypertension Qualified Code(s): I10 - Essential ( primary) hypertension Disposition: HOME, SELF-CARE Instructions: Flank Pain ([facility]), Flomax ([facility]), High Blood Pressure ([facility]) Additional Instructions: Take medication as described. Follow-up with urologist as already scheduled. Follow-up with primary care. advised to return to the ER if any signs or symptoms became worse. Take [id number] Motrin and Tylenol as needed for any fevers or pain. Follow up with primary care within 1-2 days. All questions and concerns answered by this provider . Patient/family states would follow plan of care and agreed to plan of care. Patient was discharged home and off unit without incident. Please excuse any errors in this document was done by dragon dictation. Prescriptions: Lisinopril 20 mg PO DAILY #30 tablet Tamsulosin HCl [Flomax] 0.4 mg PO DAILY #30 cap.er.24h
[2017-05-22 18:36] VITALS: BP 146/78
== END 2017-05-22 18:36 | disposition home or self-care (01) ==
LOC: ER 14:42
DX: G89.29 Other chronic pain (principal); R10.9 Unspecified abdominal pain; M54.9 Dorsalgia, unspecified; I10 Essential (primary) hypertension; I25.10 Atherosclerotic heart disease of native coronary artery without angina pectoris; Z91.010 Allergy to peanuts; I25.2 Old myocardial infarction
CPT/HCPCS: 74176; 81001; 99284